=== PATIENT | female | born 1990 | race Two or more races ===

== ENCOUNTER 2025-09-20 04:34 | Inpatient (IN) | payer MEDICAID, OTHER ==
[~2025-09-20] VITALS: Ht 154.9 cm; Wt 76.5 kg
--- NOTE | 2025-09-20 05:25 | PRN ---
Misceleneous Note Note Note RAPID MEDICAL ASSESSMENT NOTE: 35-year-old female who presents with nausea, vomiting, multiple episodes of hematemesis in the past day. Patient reports waking up with nausea and vomiting daily for the past 6 months. She reports every other day alcohol use. She is denying any abdominal pain at this time. Physical exam: General: Awake, alert and oriented. No acute distress. Skin: Skin dry and intact without rashes or lesions. HEENT: The head is normocephalic and atraumatic. Conjunctivae are clear without exudates or hemorrhage. Sclera is non-icteric. Neck: Normal range of motion. No JVD. Cardiac: Regular rate Respiratory: No signs of respiratory distress. No Stridor. Neurological: The patient is awake, alert and oriented to person, place, and time with normal speech. Speech is clear. There is no facial asymmetry. Psychiatric: Flattened affect. Plan: Labs, ppi, antiemetic. Sign out to oncoming provider pending full evaluation and re-assessment. ELISHA ANDERSON MD Sep 20, 2025 05:25
[2025-09-20] MEDS: PANTOPRAZOLE 40 MG/10 ML VIAL INJ IV ONE (06:12)
[2025-09-20] MEDS: ONDANSETRON HCL 4 MG/2 ML VIAL IV ONE ×2 (06:12→10:41)
[2025-09-20 06:26] LABS: Hematocrit 39.5 % (36.0-46.0); Hemoglobin 13.2 g/dL (12.2-16.2); Mean Corpuscular Hemoglobin 31.8 pg (28.0-32.0); Mean Corpuscular Volume 95.1 fL (80.0-100.0); Nucleated Red Blood Cells % 0.0 %
[2025-09-20 06:43] LABS: Albumin 4.6 g/dL (3.2-4.8); Anion Gap 13 (5-15); BUN/Creatinine Ratio 7.1 (10.0-20.0); Bilirubin, Total 0.8 mg/dL (0.2-1.0); Calcium 9.0 mg/dL (8.7-10.4); Carbon Dioxide 24 mmol/L (20-31); Chloride 105 mmol/L (98-107); Potassium 4.1 mmol/L (3.5-5.1); Sodium 142 mmol/L (136-145)
[2025-09-20 06:46] LABS: Alanine Aminotransferase 73 U/L (7-40); Alkaline Phosphatase 143 U/L (46-116); Blood Urea Nitrogen 5 mg/dL (9-23); Glucose 162 mg/dL (74-106); Total Protein 8.3 g/dL (5.7-8.2)
--- NOTE | 2025-09-20 07:16 | ED.PDOC ---
GI ASSESSMENT HPI Comments This is a 35 year old female presenting to the ED with chief complaint of hematemesis. Patient reports that she has had chronic episodes of nausea, vomiting, and tremors for about a year now, however, recently she started to experience bright red hematemesis during her vomiting episodes. Patient relays that she also has been developing night sweats. Patient denies any diarrhea, abdominal pain, fever, chills, chest pain, or SOB. Chief Complaint: GI Bleed Time Seen by MD: 07:14 Reviewed Notes: Nurses Notes, Medications, Allergies Allergies: Coded Allergies: NO KNOWN ALLERGIES (Unverified , 09/20/25) Home Meds No Active Prescriptions or Reported Meds Information Source: Patient Mode of Arrival: Ambulatory Timing: Days Duration: Since onset Prehospital treatment: None Vomitus: Bright Red Bood Stool: Normal Severity: Moderate Recent: None Recent Hx of: None Pain Location: None Modifying Factors: Nothing Associated sign and symptoms: Hematemesis Past Medical History PAST MEDICAL HISTORY: Denies Surgical History: Denies all surgeries ETHICAL HACKER History: No Pertinent ETHICAL HACKER History Family History Family History: Reviewed,noncontributory to illness Social History Smoker: Non-Smoker Alcohol: Denies ETOH Use Drugs: Denies Drug Use Lives In: Home Constitutional: reports: sweats; denies: chills, diaphoresis, fatigue, fever, malaise, weakness, others EENTM: denies: blurred vision, double vision, ear bleeding, ear discharge, ear drainage, ear pain, ear ringing, eye pain, eye redness, hearing loss, mouth pain, mouth swelling, nasal discharge, nose bleeding, nose congestion, nose pa in, photophobia, tearing, throat pain, throat swelling, voice changes, others Respiratory: denies: cough, hemoptysis, orthopnea, SOB at rest, shortness of breath, SOB with excertion, stridor, wheezing, others Cardiovascular: denies: chest pain, dizzy spells, diaphoresis, Dyspnea on exertion, edema, irregular heart beat, left arm pain, lightheadedness, palpitations, PND, syncope, others Gastrointestinal: reports: hematemesis, nausea, vomiting; denies: abdomen distended, abdominal pain, blood streaked bowels, constipated, diarrhea, dysphagia, difficulty swallowing, melena, poor appetite, poor fluid intake, rectal bleeding, rectal pain, others Genitourinary: denies: abnormal vagina bleeding, burning, dyspareunia, dysuria, flank pain, frequency, hematuria, incontinence, pain, , vagina discharge, urgency, others Neurological: reports: tremors; denies: dizziness, fainting, headache, left sided numbness, left sided weakness, numbness, paresthesia, pre-existing deficit, right sided numbness, right sided weakness, seizure, speech problems, tingling, weakness, others Musculoskeletal: denies: back pain, gout, joint pain, joint swelling, muscle pain, muscle stiffness, neck pain, others Integumetry: denies: bruises, change in color, change in hair/nails, dryness, laceration, lesions, lumps, rash, wounds, others Allergic/Immunocompromised: denies: Difficulty Healing, Frequent Infections, Hives, Itching, others Hematologic/Lymphatic: denies: anemia, blood clots, easy bleeding, easy bruising, swollen glands, others Endocrine: denies: excessive hunger, excessive sweating, excessive thirst, excessive urination, flushing, intolerance to cold, intolerance to heat, unexplained weight gain, unexplained weight loss, others Psychiatric: denies: anxiety, bipolar disorder, depression, hopeless, panic disorder, schizophrenia, sleepless, suicidal, others All Other Systems: Reviewed and Negative Physical Exam General Appearance: No Apparent Distress, Normal HEENT: Normal ENT Inspection, Pharynx Normal, TMs Normal Neck: Full Range of Motion, Non-Tender, Normal, Normal Inspection Respiratory: Chest Non-Tender, Lungs Clear, No Accessory Muscle Use, No Respiratory Distress, Normal Breath Sounds Cardiovascular: No Edema, No JVD, No Murmur, No Gallop, Normal Peripheral Pulses, Regular Rate/Rhythm Breast Exam: Deferred Gastrointestinal: No Organomegaly, Non Tender, No Pulsatile Mass, Normal Bowel Sounds, Soft Genitalia: Deferred Pelvic: Deferred Rectal: Deferred Extremities: No calf tenderness, Normal capillary refill, Normal inspection, Normal range of motion, Non-tender, No pedal edema Musculoskeletal : Apperance: Normal Neurologic: Alert, lead technical architect II-XII nml as Tested, No Motor Deficits, Normal Affect, Normal Mood, No Sensory Deficits, Other (Tremulous) Cerebellar Function: Normal Reflexes: Normal Skin: Dry, Normal Color, Warm Lymphatic: No Adenopathy Was a procedure done? Was a procedure done?: No GI differential Dx Differential Diagnosis: Gastritis/PUD, Gastroenteritis, Hepatitis, UTI, Urolithiasis, Dehydration X-Ray, Labs, Meds, VS Vital Signs Date Time Temp Pulse Resp B/P (MAP) Pulse Ox O2 Delivery O2 Flow Rate FiO2 09/20/25 10:30 91 24 96 Room Air* 0 21 09/20/25 10:30 98.8 91 24 147/94 (111) 96 98.8 09/20/25 07:43 98.4 84 16 152/80 (104) 98 98.4 09/20/25 07:43 84 16 98 Room Air 09/20/25 04:35 99.0 98 18 159/103 97 99.0 Lab Test 09/20/25 07:10 09/20/25 06:30 09/20/25 06:00 Range/Units Urine Color Yellow Yellow Urine Clarity Hazy H Clear Urine pH 6.5 5.0-9.0 Urine Specific [place] 1.025 1.001-1.035 Urine Protein 1+ H Negative Urine Ketones Trace Negative Urine Blood Negative Negative /uL Urine Nitrite Negative Negative Urine Bilirubin Negative Negative Urine Urobilinogen 2 H Negative mg/dL Urine Leukocyte Esterase Negative Negative /uL Urine RBC 4 0 - 4 /hpf Urine Microscopic WBC 2 0-5 /HPF Urine Squamous Epithelial Cells Few <5 /hpf Urine Bacteria Few H None Seen /hpf Urine Mucus Few None Seen Urine Glucose Trace Normal mg/dL Urine Test Negative Negative Urine Opiates Screen Neg NEGATIVE Urine Fentanyl Screen Neg NEGATIVE Urine Barbiturates Screen Neg NEGATIVE Urine Phencyclidine Screen Neg NEGATIVE Urine Amphetamines Screen Neg NEGATIVE Urine Benzodiazepines Screen Neg NEGATIVE Urine Cocaine Screen Neg NEGATIVE Urine Cannabinoids Screen Pos NEGATIVE Stool Occult Blood Negative Negative Stool Occult Blood Sample #3 Negative White Blood Count 10.2 4.4-10.8 10^3/uL Red Blood Count 4.15 4.0-5.20 10^6/uL Hemoglobin 13.2 12.2-16.2 g/dL Hematocrit 39.5 36.0-46.0 % Mean Corpuscular Volume 95.1 80.0-100.0 fL Mean Corpuscular Hemoglobin 31.8 28.0-32.0 pg Mean Corpuscular Hemoglobin Concent 33.4 32.0-36.0 g/dL Red Cell Distribution Width 16.2 H 11.8-14.3 % Platelet Count 204 140-450 10^3/uL Mean Platelet Volume 7.8 6.9-10.8 fL Neutrophils (%) (Auto) 82.9 H 37.0-80.0 % Lymphocytes (%) (Auto) 10.8 10.0-50.0 % Monocytes (%) (Auto) 5.7 0.0-12.0 % Eosinophils (%) (Auto) 0.2 0.0-7.0 % Basophils (%) (Auto) 0.4 0.0-2.0 % Neutrophils # (Auto) 8.4 1.6-8.6 10 ^3/uL Lymphocytes # (Auto) 1.1 0.4-5.4 10 ^3/uL Monocytes # (Auto) 0.6 0-1.3 10 ^3/uL Eosinophils # (Auto) 0 0-0.8 10 ^3/uL Basophils # (Auto) 0 0-0.2 10 ^3/uL Nucleated Red Blood Cells 0.0 % Sodium Level 142 136-145 mmol/L Potassium Level 4.1 3.5-5.1 mmol/L Chloride Level 105 98-107 mmol/L Carbon Dioxide Level 24 20-31 mmol/L Anion Gap 13 5-15 Blood Urea Nitrogen 5 L 9-23 mg/dL Creatinine 0.70 0.550-1.02 mg/dL Glomerular Filtration Rate Calc 116 >90 mL/min BUN/Creatinine Ratio 7.1 L 10.0-20.0 Serum Glucose 162 H 74-106 mg/dL Hemoglobin A1c 5.5 <5.7 % A1C Calcium Level 9.0 8.7-10.4 mg/dL Total Bilirubin 0.8 0.2-1.0 mg/dL Aspartate Amino Transferase (AST) 163 H 13-40 U/L Alanine Aminotransferase (ALT) 73 H 7-40 U/L Alkaline Phosphatase 143 H 46-116 U/L Total Protein 8.3 H 5.7-8.2 g/dL Albumin 4.6 3.2-4.8 g/dL Thyroid Stimulating Hormone (TSH) 2.35 0.55-4.78 uIU/mL Plasma/Serum Blood Alcohol < 3.0 <10 mg/dL Time of 1ST Reevaluation: 08:13 Reevaluation 1ST: Unchanged Patient Education/Counseling: Diagnosis, Treatment Family Education/Counseling: No Family Present SEPSIS Sepsis Screen Date sepsis recognized/suspect: Sep 20, 2025 Time Sepsis recognized/suspect: 044 Recent Procedure: No On Antibiotic Therapy: No Respiratory Rate >20: No Heart Rate >90: No Temp<36 C (96.8 F) or >38.3 C: No SBP <90 or MAP <65 mmHG: No New Acute Mental Status Change: No Is the patient on CPAP, BIPAP,: No Physician Orders Chest Portable (09/20/25 07:10) Ct Ab Pel With Iv Con Only (09/20/25 09:50) Vital Signs Date Time Temp Pulse Resp B/P (MAP) Pulse Ox O2 Delivery O2 Flow Rate FiO2 09/20/25 10:30 91 24 96 Room Air* 0 21 09/20/25 10:30 98.8 91 24 147/94 (111) 96 98.8 09/20/25 07:43 98.4 84 16 152/80 (104) 98 98.4 09/20/25 07:43 84 16 98 Room Air 09/20/25 04:35 99.0 98 18 159/103 97 99.0 Laboratory Tests Test 09/20/25 06:00 White Blood Count 10.2 10^3/uL (4.4-10.8) Departure 1 Departure Time of Disposition: 18:41 (Patient presented with abdominal pain that was concerning for possible appendicits, gastritis, cholecystitis, colitis, gastroenteritis, sbo, or orther possible surgical emergency. Data: 1. I ordered and reviewed the result of at least 3 labs including a CBC, BMP, and Urinalysis. 2. I independently interpreted the following tests: CT Abdomen and Pelvis is concerning for diffuse colitis .Risk:This patient has a high risk of morbidity due to further diagnostic testing or treatment and may suffer from an acute abdominal process disorder. Workup reveals diffuse colitis and patient should be admitted for further workup. and possible expert consultation. ) Impression: Primary Impression: Colitis Additional Impressions: Intractable nausea and vomiting Intractable abdominal pain Disposition: ADMITTED INPATIENT Admit to: Med Surg Condition: Guarded e-Prescriptions No Active Prescriptions or Reported Meds Critical Care Note Critical Care Time?: Yes Critical care comment: Intractable abdominal pain Authorized and Performed by: Rody Goodwin MD Total critical care time: Approximately 39 minutes Due to a high probability of clinically significant, life threatening deterioration, the patient required my highest level of preparedness to intervene emergently and I personally spent this critical care time directly and personally managing the patient. This critical care time included obtaining a history; examining the patient; pulse oximetry; ordering and review of studies; arranging urgent treatment with development of a management plan; evaluation of patient's response to treatment; frequent reassessment; and, discussions with other providers. This critical care time was performed to assess and manage the high probability of imminent, life-threatening deterioration that could result in multi-organ failure. It was exclusive of separately billable procedures and treating other patients and teaching time. Please see my other sections and the rest of the note for further information on patient assessment and treatment. Stability Stability form required: No Heart Score Heart Score: Heart Score Response (Comments) Value History N/A 0 EKG N/A 0 Age N/A 0 Risk Factors N/A 0 Troponin N/A 0 Total 0 I personally scribed for RODY GOODWIN MD ([email or web address]) on 09/20/25 at 07:16. Electronically submitted by Jacobo Saba ([email or web address]). RODY GOODWIN MD Sep 20, 2025 07:16
[2025-09-20 07:57] LABS: Urine Protein, UAD 1+ (Negative)
--- NOTE | 2025-09-20 08:25 | DVH ---
CHEST RADIOGRAPH Indication: vomiting Technique: Single frontal view of the chest was obtained Comparison: None FINDINGS: Lines and Tubes: None Lungs: No focal consolidation. Pleura: No effusion. No pneumothorax. Cardiomediastinal contours: Unremarkable Bones: No acute osseous abnormality. IMPRESSION: 1. No acute cardiopulmonary disease.
[2025-09-20] MEDS ORDERED: MORPHINE SULFATE 4 MG/ML SYR/VIAL IV ONE (10:00)
[2025-09-20] MEDS: IOHEXOL 300 MG/ML 100ML BOTTLE IJ ONE (10:02)
[2025-09-20 10:30] VITALS: PULSE 91; RESP 24; O2SAT 96
[2025-09-20] MEDS: HYDROmorphone HCL 2 MG/ML VL/or syr IV ONE (10:42)
[2025-09-20] MEDS: SODIUM CHLORIDE 0.9% 1,000 ML IV ONE (10:43)
[2025-09-20] MEDS ORDERED: ACETAMINOPHEN 325 MG TAB PO PRN (10:45)
[2025-09-20] MEDS ORDERED: ONDANSETRON HCL 4 MG/2 ML VIAL IV PRN (10:45)
--- NOTE | 2025-09-20 11:36 | DVH ---
Exam: CT CT AB PEL WITH IV CON ONLY History: abdominal pain COMPARISON: None Technique: Multidetector spiral CT of the abdomen and pelvis was performed from lung bases to pubic s ymphysis. Intravenous contrast was administered during this examination. Portal venous imaging was o btained. Axial, coronal and sagittal multiplanar reformats were performed by the technologist on a [employer] workstation. Radiation Dose : 1. Abdomen/Pelvis: CTDIvol 17.25mGy, DLP 908.35 mGy*cm. Findings: Lung Bases: No acute or significant lung base finding. Normal heart size. No pleural or pericardial e ffusion. Liver: Hepatic steatosis. Hepatomegaly. No focal lesions. Normal hepatic vascular enhancement. Gallbladder and Biliary Tree: Mild pericholecystic edema. Spleen: Enlarged measuring 14.7 cm. Pancreas: The pancreas is normal in appearance without focal lesions or abnormal enhancement. Adrenal Glands: Unremarkable Kidneys: No hydronephrosis. Bladder: Unremarkable Bowel: The stomach is grossly normal in appearance. Moderate diffuse colonic bowel wall thickening. T he small bowel is normal in caliber and distribution. The appendix is not visualized; however, no sec ondary findings of acute appendicitis identified. Ascites: Absent Lymphadenopathy: No mesenteric, retroperitoneal or periportal lymphadenopathy. Abdominal Wall and Mesentery: Unremarkable. Vasculature: The visualized abdominal aorta is normal in size and caliber. Abdominal and pelvic vesse ls demonstrate normal enhancement. Pelvic Organs: Unremarkable Musculoskeletal: Degenerative changes of the spine. Disc bulge at L5-S1. No aggressive focal bony les ions, acute fractures or dislocation. IMPRESSION: Moderate diffuse colonic bowel wall thickening. Correlate for infectious or inflammatory colitis. Hepatic steatosis and hepatosplenomegaly. Mild pericholecystic edema. Radiation optimization: All CT scans at this facility use at least one of these dose optimization almita hniques: automated exposure control mA and/or kV adjustment per patient size (includes targeted exam s where dose is matched to clinical indication) or iterative reconstruction.
--- NOTE | 2025-09-20 12:21 | DVH ---
CT HEAD WITHOUT CONTRAST INDICATION: numbness and tingling EXAM DATE: 09/20/2025 11:44 AM COMPARISON: None RADIATION DOSE: CTDIvol: 60.6 mGy, DLP: 1194.14 mGy*cm PROCEDURE: CT scans of the head were obtained from the vertex to the skull base. Sagittal and coronal reconstructions were provided. All CT scans at this medical facility are performed using dose modulation techniques as appropriate t o a performed exam including the following: Automated exposure control was utilized; adjustment of th e MA and/or KV according to patient size; and use of iterative reconstruction technique. FINDINGS: There is sulcal and ventricular prominence. The brainshows normal morphology and isabel-whi te matter differentiation, without intracranial hemorrhage, extra-axial fluid collection, mass effect or acute large vessel infarct. The ventricles are normal in size. The basal cisterns are patent. The skull and visible facial bones are intact. The paranasal sinuses, mastoid air cells and middle ear c avities are well-aerated. The soft tissues of the scalp are unremarkable. IMPRESSION: No acute intracranial abnormality.
[2025-09-20 12:25] LABS: Opiate Scree,Urine Neg (NEGATIVE)
[2025-09-20 12:31] LABS: Amphetamine Screen, Urine Neg (NEGATIVE); Barbiturate Scree,Urine Neg (NEGATIVE); Benzodiazephine Screen, Urine Neg (NEGATIVE); Cannabinoid Screen, Urine Pos (NEGATIVE); Cocaine Screen, Urine Neg (NEGATIVE); Phencyclidine Screen, Urine Neg (NEGATIVE)
--- NOTE | 2025-09-20 12:45 | DVH ---
INDICATION: elevated LFTs TECHNIQUE: Multiple real-time sonographic images were obtained of the right upper quadrant. COMPARISON: None FINDINGS: The liver demonstrates increased echotexture without focal mass lesions. The liver measures 20 cm. There is no intrahepatic or extrahepatic ductal dilatation. The common duct measures 3 mm. Nonspecific gallbladder wall thickening 5 mm. The gallbladder wall measures 3 mm and is within jerry l limits. The right kidney measures 10 cm. The right kidney is normal in contour, size, and shape. The echogen icity is normal. There is no hydronephrosis. The pancreas is not well visualized due to overlying bowel gas. IMPRESSION: Nonspecific gallbladder wall thickening 5 mm. No sonographic evidence of gallstones. Hepatic steatosis and hepatomegaly.
[2025-09-20] MEDS: MULTIPLE VITAMIN TAB PO ONE (12:53)
[2025-09-20] MEDS: THIAMINE HCL 100 MG TAB PO ONE (12:53)
[2025-09-20] MEDS: FOLIC ACID 1 MG TAB PO ONE (12:54)
[2025-09-20] MEDS: LORazepam 2MG/ML-1ML VIAL IV SCH (12:54)
--- NOTE | 2025-09-20 12:58 | DVH ---
INDICATION: back pain TECHNIQUE: Frontal and lateral views of the lumbar spine were obtained. COMPARISON: None FINDINGS: . There are no fractures or subluxations. Vertebral body heights and disc spaces are well m aintained. Paravertebral soft tissues are unremarkable. IMPRESSION: 1. Of the visualized spine, there is no evidence for fracture or subluxation.
[2025-09-20 13:04] LABS: COVID19 ANTIGEN SOFIA FIA NEGATIVE (NEGATIVE)
[2025-09-20] MEDS: SODIUM CHLORIDE 0.9% 1,000 ML IV SCH (13:08)
[2025-09-20 13:44] LABS: Magnesium 1.3 mg/dL (1.6-2.6)
[2025-09-20 14:13] VITALS: BP 143/95; PULSE 87; RESP 17; TEMP 98.7; O2SAT 96
[2025-09-20 14:14] VITALS: PULSE 86; O2SAT 97
[2025-09-20 14:15] LABS: Bilirubin, Total 0.8 mg/dL (0.2-1.0)
[2025-09-20 15:05] LABS: Lipase 43.0 U/L (12-53)
[2025-09-20 17:00] VITALS: BP 117/74; PULSE 78; RESP 17; TEMP 99.4; O2SAT 98
[2025-09-20 20:00] VITALS: PULSE 88
[2025-09-20 21:00] VITALS: BP 128/90; PULSE 89; RESP 14; TEMP 99.4; O2SAT 95
[2025-09-21 01:00] VITALS: BP 121/86; PULSE 70; RESP 14; TEMP 98.1; O2SAT 97
[2025-09-21 05:00] VITALS: BP 159/94; PULSE 101; RESP 16; TEMP 98.4; O2SAT 95
[2025-09-21 07:04] LABS: Hematocrit 35.8 % (36.0-46.0); Hemoglobin 12.5 g/dL (12.2-16.2); Mean Corpuscular Hemoglobin 32.8 pg (28.0-32.0); Mean Corpuscular Volume 93.7 fL (80.0-100.0); Nucleated Red Blood Cells % 0.2 %
[2025-09-21 07:20] LABS: Albumin 4.0 g/dL (3.2-4.8); Anion Gap 9 (5-15); BUN/Creatinine Ratio 13.6 (10.0-20.0); Blood Urea Nitrogen 9 mg/dL (9-23); Calcium 8.8 mg/dL (8.7-10.4); Carbon Dioxide 25 mmol/L (20-31); Chloride 106 mmol/L (98-107); Glucose 100 mg/dL (74-106); Potassium 3.6 mmol/L (3.5-5.1); Sodium 140 mmol/L (136-145); Total Protein 7.1 g/dL (5.7-8.2)
[2025-09-21 07:39] LABS: Alanine Aminotransferase 50 U/L (7-40); Alkaline Phosphatase 128 U/L (46-116); Bilirubin, Total 1.7 mg/dL (0.2-1.0)
[2025-09-21] MEDS ORDERED: MULTIPLE VITAMIN TAB PO SCH (10:00)
[2025-09-21] MEDS ORDERED: FOLIC ACID 1 MG TAB PO SCH (10:00)
[2025-09-21] MEDS ORDERED: PANTOPRAZOLE 40 MG/10 ML VIAL INJ IV SCH (10:00)
[2025-09-21] MEDS ORDERED: THIAMINE HCL 100 MG TAB PO SCH (10:00)
--- NOTE | 2025-09-21 11:07 | DVHHP2 ---
History of Present Illness Reason for Visit: Hematemesis History of Present Illness Alma Nieto is a 35-year-old female with past medical history of chronic back pain, anxiety and ectopic status post salpingectomy who presents to ED with hematemesis x1 that occurred yesterday after she had greater than 10 episodes of emesis. Patient reported that the 1 episode of hematemesis with streak like with no clots involved. Patient reports that she was a [facility] patient but when she tried to call they advised her that she no longer has insurance which prompted her to come to this ED. Patient also reports that she has low back pain complaining 7/10 aching and constant. Patient also reports that she has been having nausea and vomiting as well as night sweats since she was a young child. Patient reports that she does not currently have a PCP. Patient also reports that she has been stressed recently and has been drinking a cocktail every day after work. Patient reports that she has not been able to eat the last 2 days, however she ate tacos from [employer]. Patient also reports night sweats. Patient reports that she has been having nausea, vomiting, and tremors for the last year. Patient reports that she has been having chronic back pain since 2013 after she received an epidural for labor pains. Patient denies any recent trauma or injury, recent sick contacts, recent travels, chest pain, shortness of breath, fever, chills, diarrhea, or urinary symptoms. Psych: Anxiety Past Medical History Ectopic Chronic back pain Past Surgical History: Other (Salpingectomy) Family History: None Smoke: No ALCOHOL: heavy Drugs: None Lives: with Family Domestic Violence: Neg Review of Systems Constitutional: Yes: Sweats Gastrointestinal: Nausea, Vomiting, Other (Hematemesis) Allergies: Coded Allergies: NO KNOWN ALLERGIES (Unverified , 09/20/25) Exam Vital Signs Vital Signs Date Time Temp Pulse Resp B/P (MAP) Pulse Ox O2 Delivery O2 Flow Rate FiO2 09/20/25 07:43 98.4 84 16 152/80 (104) 98 98.4 09/20/25 07:43 Room Air General Appearance: Alert, Oriented X3, Cooperative HEENT: Atraumatic, PERRLA, EOMI, Mucous membr. moist/pink Respiratory: Normal air movement Cardiovascular: Regular rate, Normal S1, Normal S2, No murmurs Abdominal: Normal bowel sounds, Soft Extremities: No edema, Normal pulses Skin: No significant lesion Neuro: Normal speech, Strength at 5/5 X4 ext, Normal tone, Sensation intact Psych/Mental Status: Mental status NL, Mood NL Labs/Xrays Labs Test 09/20/25 07:10 09/20/25 06:00 Range/Units Urine Color Yellow Yellow Urine Clarity Hazy H Clear Urine pH 6.5 5.0-9.0 Urine Specific [place] 1.025 1.001-1.035 Urine Protein 1+ H Negative Urine Ketones Trace Negative Urine Blood Negative Negative /uL Urine Nitrite Negative Negative Urine Bilirubin Negative Negative Urine Urobilinogen 2 H Negative mg/dL Urine Leukocyte Esterase Negative Negative /uL Urine RBC 4 0 - 4 /hpf Urine Microscopic WBC 2 0-5 /HPF Urine Squamous Epithelial Cells Few <5 /hpf Urine Bacteria Few H None Seen /hpf Urine Mucus Few None Seen Urine Glucose Trace Normal mg/dL Urine Test Negative Negative White Blood Count 10.2 4.4-10.8 10^3/uL Red Blood Count 4.15 4.0-5.20 10^6/uL Hemoglobin 13.2 12.2-16.2 g/dL Hematocrit 39.5 36.0-46.0 % Mean Corpuscular Volume 95.1 80.0-100.0 fL Mean Corpuscular Hemoglobin 31.8 28.0-32.0 pg Mean Corpuscular Hemoglobin Concent 33.4 32.0-36.0 g/dL Red Cell Distribution Width 16.2 H 11.8-14.3 % Platelet Count 204 140-450 10^3/uL Mean Platelet Volume 7.8 6.9-10.8 fL Neutrophils (%) (Auto) 82.9 H 37.0-80.0 % Lymphocytes (%) (Auto) 10.8 10.0-50.0 % Monocytes (%) (Auto) 5.7 0.0-12.0 % Eosinophils (%) (Auto) 0.2 0.0-7.0 % Basophils (%) (Auto) 0.4 0.0-2.0 % Neutrophils # (Auto) 8.4 1.6-8.6 10 ^3/uL Lymphocytes # (Auto) 1.1 0.4-5.4 10 ^3/uL Monocytes # (Auto) 0.6 0-1.3 10 ^3/uL Eosinophils # (Auto) 0 0-0.8 10 ^3/uL Basophils # (Auto) 0 0-0.2 10 ^3/uL Nucleated Red Blood Cells 0.0 % Sodium Level 142 136-145 mmol/L Potassium Level 4.1 3.5-5.1 mmol/L Chloride Level 105 98-107 mmol/L Carbon Dioxide Level 24 20-31 mmol/L Anion Gap 13 5-15 Blood Urea Nitrogen 5 L 9-23 mg/dL Creatinine 0.70 0.550-1.02 mg/dL Glomerular Filtration Rate Calc 116 >90 mL/min BUN/Creatinine Ratio 7.1 L 10.0-20.0 Serum Glucose 162 H 74-106 mg/dL Calcium Level 9.0 8.7-10.4 mg/dL Total Bilirubin 0.8 0.2-1.0 mg/dL Aspartate Amino Transferase (AST) 163 H 13-40 U/L Alanine Aminotransferase (ALT) 73 H 7-40 U/L Alkaline Phosphatase 143 H 46-116 U/L Total Protein 8.3 H 5.7-8.2 g/dL Albumin 4.6 3.2-4.8 g/dL Plasma/Serum Blood Alcohol < 3.0 <10 mg/dL CHEST RADIOGRAPH Indication: vomiting Technique: Single frontal view of the chest was obtained Comparison: None FINDINGS: Lines and Tubes: None Lungs: No focal consolidation. Pleura: No effusion. No pneumothorax. Cardiomediastinal contours: Unremarkable Bones: No acute osseous abnormality. IMPRESSION: 1. No acute cardiopulmonary disease. Exam: CT CT AB PEL WITH IV CON ONLY History: abdominal pain COMPARISON: None Technique: Multidetector spiral CT of the abdomen and pelvis was performed from lung bases to pubic symphysis. Intravenous contrast was administered during this examination. Portal venous imaging was obtained. Axial, coronal and sagittal multiplanar reformats were performed by the technologist on a separate workstation. Radiation Dose : 1. Abdomen/Pelvis: CTDIvol 17.25mGy, DLP 908.35 mGy*cm. Findings: Lung Bases: No acute or significant lung base finding. Normal heart size. No pleural or pericardial effusion. Liver: Hepatic steatosis. Hepatomegaly. No focal lesions. Normal hepatic vascular enhancement. Gallbladder and Biliary Tree: Mild pericholecystic edema. Spleen: Enlarged measuring 14.7 cm. Pancreas: The pancreas is normal in appearance without focal lesions or abnormal enhancement. Adrenal Glands: Unremarkable Kidneys: No hydronephrosis. Bladder: Unremarkable Bowel: The stomach is grossly normal in appearance. Moderate diffuse colonic bowel wall thickening. The small bowel is normal in caliber and distribution. The appendix is not visualized; however, no secondary findings of acute appendicitis identified. Ascites: Absent Lymphadenopathy: No mesenteric, retroperitoneal or periportal lymphadenopathy. Abdominal Wall and Mesentery: Unremarkable. Vasculature: The visualized abdominal aorta is normal in size and caliber. Abdominal and pelvic vessels demonstrate normal enhancement. Pelvic Organs: Unremarkable Musculoskeletal: Degenerative changes of the spine. Disc bulge at L5-S1. No aggressive focal bony lesions, acute fractures or dislocation. IMPRESSION: Moderate diffuse colonic bowel wall thickening. Correlate for infectious or inflammatory colitis. Hepatic steatosis and hepatosplenomegaly. Mild pericholecystic edema. SEPSIS Sepsis Screen Date sepsis recognized/suspect: Sep 20, 2025 Time Sepsis recognized/suspect: 440 Recent Procedure: No On Antibiotic Therapy: No Respiratory Rate >20: No Heart Rate >90: No Temp<36 C (96.8 F) or >38.3 C: No SBP <90 or MAP <65 mmHG: No New Acute Mental Status Change: No Is the patient on CPAP, BIPAP,: No Physician Orders Urinalysis (09/20/25 05:16) Stool Occult Blood (09/20/25 05:16) Chest Portable (09/20/25 07:10) Sodium Chloride 0.9% (09/20/25 10:00) Ct Ab Pel With Iv Con Only (09/20/25 09:50) Vital Signs Date Time Temp Pulse Resp B/P (MAP) Pulse Ox O2 Delivery O2 Flow Rate FiO2 09/20/25 07:43 98.4 84 16 152/80 (104) 98 98.4 09/20/25 07:43 84 16 98 Room Air 09/20/25 04:35 99.0 98 18 159/103 97 99.0 Laboratory Tests Test 09/20/25 06:00 White Blood Count 10.2 10^3/uL (4.4-10.8) Medications Medications Dose Ordered Sig/[place] Route Start Time Stop Time Status Last Admin Dose Admin Ondansetron HCl 4 mg ONCE ONCE IV 09/20/25 05:30 09/20/25 05:31 DC 09/20/25 06:12 4 MG Pantoprazole Sodium 40 mg ONCE ONCE IV 09/20/25 05:30 09/20/25 05:31 DC 09/20/25 06:12 40 MG Assessment/Plan Assessment/Plan Assessment Intractable abdominal pain likely due to colitis Hepatic steatosis and hepatosplenomegaly Mild pericholecystic edema Hematemesis rule out GI bleed Transaminitis likely from alcohol use Hyperglycemia ? ETOH withdrawal versus anxiety Alcohol use Intractable low back pain Numbness and tingling in bilateral upper extremities, bilateral lower extremities, and head per patient reports History of anxiety History of ectopic status post salpingectomy Plan Admit to telemetry Antiemetics Pain management CT abdomen and pelvis UA NS 1 L given ED Blood alcohol noted Chest x-ray noted UA for Stool OB Lactic Flu test COVID test TSH Hemoglobin A1c CIWA Multivitamins Thiamine Folic acid Anxiolytics X-ray lumbar spine Abdominal ultrasound CT head Lipase T bili NPO IV fluids Per patient no home medications taken DVT prophylaxis-SCDs PUD prophylaxis-PPIs Discussed plan of care with patient and nurse Counseled patient on cessation of alcohol use [id number] Preventive counseling healthy eating habits, physical activity, and regular checkups CIWA 13 points Plan discussed with: Patient Date of Service: Sep 20, 2025 Billing Provider: KJ ZAFAR Common Visit Codes: [id number] INP/OBS CARE (HIGH) Secondary Visit Codes: [id number] COUNSELING IND KJ ZAFAR Sep 20, 2025 10:41
--- NOTE | 2025-09-21 14:25 | DVHDS2 ---
Discharge Summary Date of Admission Sep 20, 2025 at 10:35 Date of Discharge: Sep 21, 2025 Labs/Diagnostic Data: Laboratory Results Test 09/21/25 05:58 09/20/25 12:43 09/20/25 10:55 09/20/25 07:10 White Blood Count 5.1 10^3/uL (4.4-10.8) Red Blood Count 3.82 10^6/uL (4.0-5.20) Hemoglobin 12.5 g/dL (12.2-16.2) Hematocrit 35.8 % (36.0-46.0) Mean Corpuscular Volume 93.7 fL (80.0-100.0) Mean Corpuscular Hemoglobin 32.8 pg (28.0-32.0) Mean Corpuscular Hemoglobin Concent 35.0 g/dL (32.0-36.0) Red Cell Distribution Width 16.2 % (11.8-14.3) Platelet Count 131 10^3/uL (140-450) Mean Platelet Volume 8.4 fL (6.9-10.8) Neutrophils (%) (Auto) 72.9 % (37.0-80.0) Lymphocytes (%) (Auto) 18.9 % (10.0-50.0) Monocytes (%) (Auto) 6.5 % (0.0-12.0) Eosinophils (%) (Auto) 1.4 % (0.0-7.0) Basophils (%) (Auto) 0.3 % (0.0-2.0) Neutrophils # (Auto) 3.7 10 ^3/uL (1.6-8.6) Lymphocytes # (Auto) 1.0 10 ^3/uL (0.4-5.4) Monocytes # (Auto) 0.3 10 ^3/uL (0-1.3) Eosinophils # (Auto) 0.1 10 ^3/uL (0-0.8) Basophils # (Auto) 0 10 ^3/uL (0-0.2) Nucleated Red Blood Cells 0.2 % Sodium Level 140 mmol/L (136-145) Potassium Level 3.6 mmol/L (3.5-5.1) Chloride Level 106 mmol/L (98-107) Carbon Dioxide Level 25 mmol/L (20-31) Anion Gap 9 (5-15) Blood Urea Nitrogen 9 mg/dL (9-23) Creatinine 0.66 mg/dL (0.550-1.02) Glomerular Filtration Rate Calc 118 mL/min (>90) BUN/Creatinine Ratio 13.6 (10.0-20.0) Serum Glucose 100 mg/dL (74-106) Calcium Level 8.8 mg/dL (8.7-10.4) Total Bilirubin 1.7 mg/dL (0.2-1.0) Aspartate Amino Transferase (AST) 95 U/L (13-40) Alanine Aminotransferase (ALT) 50 U/L (7-40) Alkaline Phosphatase 128 U/L (46-116) Total Protein 7.1 g/dL (5.7-8.2) Albumin 4.0 g/dL (3.2-4.8) Lactic Acid Level 1.3 mmol/L (0.4-2.0) Magnesium Level 1.3 mg/dL (1.6-2.6) Lipase 43 U/L (12-53) Plasma/Serum Blood Alcohol < 3.0 mg/dL (<10) Influenza Type A Antigen Negative (Negative) Influenza Type B Antigen Negative (Negative) SARS-CoV-2 Antigen (Rapid) Negative (NEGATIVE) Urine Color Yellow (Yellow) Urine Clarity Hazy (Clear) Urine pH 6.5 (5.0-9.0) Urine Specific [place] 1.025 (1.001-1.035) Urine Protein 1+ (Negative) Urine Ketones Trace (Negative) Urine Blood Negative /uL (Negative) Urine Nitrite Negative (Negative) Urine Bilirubin Negative (Negative) Urine Urobilinogen 2 mg/dL (Negative) Urine Leukocyte Esterase Negative /uL (Negative) Urine RBC 4 /hpf (0 - 4) Urine Microscopic WBC 2 /HPF (0-5) Urine Squamous Epithelial Cells Few /hpf (<5) Urine Bacteria Few /hpf (None Seen) Urine Mucus Few (None Seen) Urine Glucose Trace mg/dL (Normal) Urine Test Negative (Negative) Urine Opiates Screen Neg (NEGATIVE) Urine Fentanyl Screen Neg (NEGATIVE) Urine Barbiturates Screen Neg (NEGATIVE) Urine Phencyclidine Screen Neg (NEGATIVE) Urine Amphetamines Screen Neg (NEGATIVE) Urine Benzodiazepines Screen Neg (NEGATIVE) Urine Cocaine Screen Neg (NEGATIVE) Urine Cannabinoids Screen Pos (NEGATIVE) Test 09/20/25 06:30 09/20/25 06:00 Stool Occult Blood Negative (Negative) Stool Occult Blood Sample #3 (Negative) Hemoglobin A1c 5.5 % A1C (<5.7) Thyroid Stimulating Hormone (TSH) 2.35 uIU/mL (0.55-4.78) Other Laboratory Tests 09/21/25 05:58 Brief Hx & Hospital Course: 35-year-old female with past medical history of chronic back pain, anxiety and ectopic status post salpingectomy who presents to ED with hematemesis x1 that occurred yesterday after she had greater than 10 episodes of emesis. Patient reported that the 1 episode of hematemesis with streak like with no clots involved. Patient reports that she was a [facility] patient but when she tried to call they advised her that she no longer has insurance which prompted her to come to this ED. Patient also reports that she has low back pain complaining 7/10 aching and constant. Patient also reports that she has been having nausea and vomiting as well as night sweats since she was a young child. Patient reports that she does not currently have a PCP. Patient also reports that she has been stressed recently and has been drinking a cocktail every day after work. Patient reports that she has not been able to eat the last 2 days, however she ate tacos from [employer]. Patient also reports night sweats. Patient reports that she has been having nausea, vomiting, and tremors for the last year. Diagnosis: Intractable abdominal pain likely due to colitis Hematemesis, rule out upper GI bleed Hepatic steatosis and hepatosplenomegaly Mild pericholecystic edema Transaminitis likely from alcohol use Hyperglycemia ? ETOH withdrawal versus anxiety Alcohol use Intractable low back pain Numbness and tingling in bilateral upper extremities, bilateral lower extremities, and head per patient reports History of anxiety History of ectopic status post salpingectomy Patient left AMA, thus assuming all responsibility and any complications that may arise from having not getting recommended and needed adequate medical care/attention. Complications can include including and/or coma, and any other serious fatal comorbidities. Condition at Discharge: Undetermined Final Diagnosis/Problems List Intractable abdominal pain likely due to colitis Hematemesis, rule out upper GI bleed Hepatic steatosis and hepatosplenomegaly Mild pericholecystic edema Transaminitis likely from alcohol use Hyperglycemia ? ETOH withdrawal versus anxiety Alcohol use Intractable low back pain Numbness and tingling in bilateral upper extremities, bilateral lower extremities, and head per patient reports History of anxiety History of ectopic status post salpingectomy Discharge Disposition: AMA Discharge Instruct/Medications No Active Prescriptions or Reported Meds Discharge Statement: "Patient was advised to return to the ER or call 911 if any headaches, dizziness, shortness of breath, chest pain, abdominal pain, bleeding, fevers, or worsening of medical condition. Patient was counseled about treatment plan, medications, possible side effects, patientverbalized understanding. All questions were answered to the best of my ability. This discharge took greater then 30 minutes in planning, reviewing documentation, counseling the patient, and discussing with other team members." ASSESSMENT ASSESSMENT Assessment Date of Service: Sep 21, 2025 Billing Provider: ELIVA BLANCHARD MD Common Visit Codes: NOT BILLABLE ELVIA BLANCHARD MD Sep 21, 2025 14:25
== END 2025-09-21 08:55 | disposition left against medical advice (07) | DRG 249 ==
LOC: ER 04:34 → OVERFLOW 10:35 → EAST 14:04
PROVIDERS: ADMIT Student in an Organized Health Care Education/Training Program; ATTEND Internal Medicine
DX: K52.9 Noninfective gastroenteritis and colitis, unspecified (principal); R16.2 Hepatomegaly with splenomegaly, not elsewhere classified; F10.939 Alcohol use, unspecified with withdrawal, unspecified; F41.9 Anxiety disorder, unspecified; G89.29 Other chronic pain; Z53.29 Procedure and treatment not carried out because of patient's decision for other reasons; K76.0 Fatty (change of) liver, not elsewhere classified; R73.9 Hyperglycemia, unspecified; Z87.59 Personal history of other complications of pregnancy, childbirth and the puerperium; Z79.899 Other long term (current) drug therapy; Y90.0 Blood alcohol level of less than 20 mg/100 ml
CPT/HCPCS: 36415; 70450; 71045; 72100; 74177; 76705; 80053; 80307; 80320; 81001; 81025; 82247; 82270; 83036; 83605; 83690; 83735; 84443; 85025; 87426; 87804; G0378; J2405; J2470

== ENCOUNTER 2025-09-29 06:46 | Emergency (ER) | payer MEDICAID ==
[~2025-09-29] VITALS: Ht 154.9 cm; Wt 75.4 kg
--- NOTE | 2025-09-29 07:30 | ED.PDOC ---
GI ASSESSMENT HPI Comments 35 y.o female presents to the ED for a chief complaint of ongoing lower back radiating to mid region associated with abdominal distention. Patient was seen on 09/20/25 for similar pain and hematemesis then, was admitted with colitis diagnosed and stayed for a day and a half for extensive workup. During her stay, she has multiple imaging scans that included US, CT ABD and X rays. However, after waiting did end up leaving against medical advice but returns due to ongoing symptoms. She mentions no longer having hematemesis. She states she no longer has night sweats.. She states she feels that there is hardness and bloating to her abdomen and reports lower back pain. Denies any fever or chills. No nausea no vomiting no diarrhea. Chief Complaint: Abdominal Pain Time Seen by MD: 07:23 Reviewed Notes: Nurses Notes, Medications, Allergies Allergies: Coded Allergies: NO KNOWN ALLERGIES (Unverified , 09/20/25) Home Meds No Active Prescriptions or Reported Meds Information Source: Patient Mode of Arrival: Ambulatory Timing: Days Duration: Since onset Quality: Sharp Associated sign and symptoms: Abdominal Pain Past Medical History PAST MEDICAL HISTORY: Denies Surgical History: Denies all surgeries BUSINESS ASSOCIATE History: No Pertinent BUSINESS ASSOCIATE History Family History Family History: Reviewed,noncontributory to illness Social History Smoker: Non-Smoker Alcohol: Denies ETOH Use Drugs: Denies Drug Use Lives In: Home Constitutional: denies: chills, diaphoresis, fatigue, fever, malaise, sweats, weakness, others EENTM: denies: blurred vision, double vision, ear bleeding, ear discharge, ear drainage, ear pain, ear ringing, eye pain, eye redness, hearing loss, mouth pain, mouth swelling, nasal discharge, nose bleeding, nose congestion, nose p ain, photophobia, tearing, throat pain, throat swelling, voice changes, others Respiratory: denies: cough, hemoptysis, orthopnea, SOB at rest, shortness of breath, SOB with excertion, stridor, wheezing, others Cardiovascular: denies: chest pain, dizzy spells, diaphoresis, Dyspnea on exertion, edema, irregular heart beat, left arm pain, lightheadedness, palpitations, PND, syncope, others Gastrointestinal: reports: abdominal pain; denies: abdomen distended, blood streaked bowels, constipated, diarrhea, dysphagia, difficulty swallowing, hematemesis, melena, nausea, poor appetite, poor fluid intake, rectal bleeding, rectal pain, vomiting, others Genitourinary: denies: abnormal vagina bleeding, burning, dyspareunia, dysuria, flank pain, frequency, hematuria, incontinence, pain, , vagina discharge, urgency, others Neurological: denies: dizziness, fainting, headache, left sided numbness, left sided weakness, numbness, paresthesia, pre-existing deficit, right sided numbness, right sided weakness, seizure, speech problems, tingling, tremors, weakness, others Musculoskeletal: denies: back pain, gout, joint pain, joint swelling, muscle pain, muscle stiffness, neck pain, others Integumetry: denies: bruises, change in color, change in hair/nails, dryness, laceration, lesions, lumps, rash, wounds, others Allergic/Immunocompromised: denies: Difficulty Healing, Frequent Infections, Hives, Itching, others Hematologic/Lymphatic: denies: anemia, blood clots, easy bleeding, easy bruising, swollen glands, others Endocrine: denies: excessive hunger, excessive sweating, excessive thirst, excessive urination, flushing, intolerance to cold, intolerance to heat, unexpl ained weight gain, unexplained weight loss, others Psychiatric: denies: anxiety, bipolar disorder, depression, hopeless, panic disorder, schizophrenia, sleepless, suicidal, others All Other Systems: Reviewed and Negative Physical Exam General Appearance: No Apparent Distress, Normal HEENT: Normal ENT Inspection, Pharynx Normal, TMs Normal Neck: Full Range of Motion, Non-Tender, Normal, Normal Inspection Respiratory: Chest Non-Tender, Lungs Clear, No Accessory Muscle Use, No Respiratory Distress, Normal Breath Sounds Cardiovascular: No Edema, No JVD, No Murmur, No Gallop, Normal Peripheral Pulses, Regular Rate/Rhythm Breast Exam: Deferred Gastrointestinal: Distended, No Organomegaly, Non Tender, No Pulsatile Mass, Normal Bowel Sounds, Soft, Other (Mild abdominal distention, no CVA tenderness) Genitalia: Deferred Pelvic: Deferred Rectal: Deferred Extremities: No calf tenderness, Normal capillary refill, Normal inspection, Normal range of motion, Non-tender, No pedal edema Musculoskeletal : Apperance: Normal Neurologic: Alert, agronomy specialist II-XII nml as Tested, No Motor Deficits, Normal Affect, Normal Mood, No Sensory Deficits Cerebellar Function: Normal Reflexes: Normal Skin: Dry, Normal Color, Warm Lymphatic: No Adenopathy EKG EKG : Comments Rate of 82 sinus rhythm no significant ST changes Was a procedure done? Was a procedure done?: No GI differential Dx Differential Diagnosis: Bowel Obstruction, Esophagitis, Gastroenteritis, Pancreatitis, , Bacterial, Viral, Renal Failure Other Differential Diagnosis colitis X-Ray, Labs, Meds, VS Vital Signs Date Time Temp Pulse Resp B/P (MAP) Pulse Ox O2 Delivery O2 Flow Rate FiO2 09/29/25 08:06 86 18 97 Room Air 09/29/25 08:06 98.4 86 18 148/83 (104) 97 98.4 09/29/25 06:55 82 09/29/25 06:47 97.0 89 18 155/111 97 97.0 Lab Test 09/29/25 07:52 09/29/25 07:37 Range/Units White Blood Count 6.7 4.4-10.8 10^3/uL Red Blood Count 4.17 4.0-5.20 10^6/uL Hemoglobin 13.0 12.2-16.2 g/dL Hematocrit 38.8 36.0-46.0 % Mean Corpuscular Volume 93.2 80.0-100.0 fL Mean Corpuscular Hemoglobin 31.3 28.0-32.0 pg Mean Corpuscular Hemoglobin Concent 33.6 32.0-36.0 g/dL Red Cell Distribution Width 15.6 H 11.8-14.3 % Platelet Count 143 140-450 10^3/uL Mean Platelet Volume 8.7 6.9-10.8 fL Neutrophils (%) (Auto) 77.9 37.0-80.0 % Lymphocytes (%) (Auto) 15.8 10.0-50.0 % Monocytes (%) (Auto) 4.9 0.0-12.0 % Eosinophils (%) (Auto) 1.1 0.0-7.0 % Basophils (%) (Auto) 0.3 0.0-2.0 % Neutrophils # (Auto) 5.3 1.6-8.6 10 ^3/uL Lymphocytes # (Auto) 1.1 0.4-5.4 10 ^3/uL Monocytes # (Auto) 0.3 0-1.3 10 ^3/uL Eosinophils # (Auto) 0.1 0-0.8 10 ^3/uL Basophils # (Auto) 0 0-0.2 10 ^3/uL Nucleated Red Blood Cells 0.0 % Sodium Level 142 136-145 mmol/L Potassium Level 4.3 3.5-5.1 mmol/L Chloride Level 106 98-107 mmol/L Carbon Dioxide Level 24 20-31 mmol/L Anion Gap 12 5-15 Blood Urea Nitrogen 7 L 9-23 mg/dL Creatinine 0.66 0.550-1.02 mg/dL Glomerular Filtration Rate Calc 118 >90 mL/min BUN/Creatinine Ratio 10.6 10.0-20.0 Serum Glucose 116 H 74-106 mg/dL Calcium Level 8.9 8.7-10.4 mg/dL Total Bilirubin 0.9 0.2-1.0 mg/dL Aspartate Amino Transferase (AST) 164 H 13-40 U/L Alanine Aminotransferase (ALT) 65 H 7-40 U/L Alkaline Phosphatase 141 H 46-116 U/L Total Protein 8.2 5.7-8.2 g/dL Albumin 4.5 3.2-4.8 g/dL Lipase 69 H 12-53 U/L Urine Color Yellow Yellow Urine Clarity Turbid H Clear Urine pH 8.0 5.0-9.0 Urine Specific Sunburst 1.019 1.001-1.035 Urine Protein Negative Negative Urine Ketones Negative Negative Urine Blood Negative Negative /uL Urine Nitrite Negative Negative Urine Bilirubin Negative Negative Urine Urobilinogen 2 H Negative mg/dL Urine Leukocyte Esterase Negative Negative /uL Urine RBC 18 0 - 4 /hpf Urine Microscopic WBC 2 0-5 /HPF Urine Squamous Epithelial Cells Few <5 /hpf Urine Bacteria None seen None Seen /hpf Urine Glucose Normal Normal mg/dL Urine Test Negative Negative Current Medications Medications (Trade) Dose Ordered Sig/Chetan Route Start Time Stop Time Status Last Admin Dimethicone (Mylicon Tab) 120 mg ONCE ONCE PO 09/29/25 07:45 09/29/25 07:46 DC 09/29/25 07:58 35-year-old female presents here with low back pain and abdominal pain. She states she was here proximally a week ago and was admitted but had to leave as she had to take care of her kids. She states that overall things have improved since the admission. She is no longer vomiting no longer having night sweats. On my examination she is slightly distended but nontender. I suspect likely bloating. I have reviewed all her records from her last visit from September 20 and . It seems that she was here for hematemesis had elevated bilirubin of 1.7. She was admitted to the hospital. CT abdomen pelvis from the last visit demonstrated colitis infectious versus inflammatory. At this time she denies any dysuria, denies any fever or chills. I advised her I suspect the abdominal pain is likely gas and bloating. I have ordered repeat CBC, CMP, lipase, urine for evaluation. CBC within normal limits. CMP demonstrates improved bilirubin function it is now 0.9. Previously was 1.7 week ago. LFTs continued to be up but still within range of last week. Lipase is slightly high at 69 versus 43 last week. At this time however overall she is doing better. The simethicone has helped. I have discharged her home with simethicone p.o.. At this time advised her to follow up with her PCP in 2-3 days and return to the ER if symptoms worsen or persist. Advised her if after 1 week she continues to have these symptoms she needs to follow up with her primary care physician and will likely need a gastroenterology follow up and referral as she may need a colonoscopy. Patient agreeable. Time of 1ST Reevaluation: 08:30 Reevaluation 1ST: Unchanged Time of 2ND Reevaluation: 10:17 Reevaluation 2ND: Improved Patient Education/Counseling: Diagnosis, Treatment, Prognosis Family Education/Counseling: No Family Present SEPSIS Sepsis Screen Date sepsis recognized/suspect: Sep 29, 2025 Time Sepsis recognized/suspect: 0650 Recent Procedure: No On Antibiotic Therapy: No Respiratory Rate >20: No Heart Rate >90: No Temp<36 C (96.8 F) or >38.3 C: No SBP <90 or MAP <65 mmHG: No New Acute Mental Status Change: No Is the patient on CPAP, BIPAP,: No Physician Orders Electrocardigram (09/29/25 07:32) Vital Signs Date Time Temp Pulse Resp B/P (MAP) Pulse Ox O2 Delivery O2 Flow Rate FiO2 09/29/25 08:06 86 18 97 Room Air 09/29/25 08:06 98.4 86 18 148/83 (104) 97 98.4 09/29/25 06:55 82 09/29/25 06:47 97.0 89 18 155/111 97 97.0 Laboratory Tests Test 09/29/25 07:52 White Blood Count 6.7 10^3/uL (4.4-10.8) Medications Medications Dose Ordered Sig/Chetan Route Start Time Stop Time Status Last Admin Dose Admin Dimethicone 120 mg ONCE ONCE PO 09/29/25 07:45 09/29/25 07:46 DC 09/29/25 07:58 Departure 1 Departure Time of Disposition: 10:15 Impression: Primary Impression: Colitis Additional Impression: Transaminitis Disposition: HOME / SELF CARE / HOMELESS Condition: Fair Additional Instructions: Follow up with the primary care physician in 2-3 days. Return to the ER if symptoms worsen or persist. If you are symptoms do not improve in 1 week follow up with the primary care physician and you may need a GI referral for colonoscopy. e-Prescriptions Simethicone (Gas Relief Extra Strength) 125 Mg Chw 125 MG PO Q6HPRN PRN, #14 TAB.CHEW Prov: FAUSTINA VARGAS MD 09/29/25 Discharged With: Self Critical Care Note Critical Care Time?: No Stability Stability form required: No Heart Score Heart Score: Heart Score Response (Comments) Value History N/A 0 EKG N/A 0 Age N/A 0 Risk Factors N/A 0 Troponin N/A 0 Total 0 I personally scribed for FAUSTINA VARGAS MD ([email or web address]) on 09/29/25 at 07:30. Electronically submitted by Addie Auguste ([facility]). I personally scribed for FAUSTINA VARGAS MD ([email or web address]) on 09/29/25 at 07:37. Electronically submitted by Addie Auguste ([facility] I personally scribed for FAUSTINA VARGAS MD ([email or web address]) on 09/29/25 at 07:43. Electronically submitted by Addie Auguste ([facility]). FAUSTINA VARGAS MD Sep 29, 2025 07:30
[2025-09-29] MEDS: SIMETHICONE 80 MG CHEWABLE TABLET PO ONE (07:58)
[2025-09-29 08:04] LABS: Urine Protein, UAD Negative (Negative)
[2025-09-29 08:31] LABS: Hematocrit 38.8 % (36.0-46.0); Hemoglobin 13.0 g/dL (12.2-16.2); Mean Corpuscular Hemoglobin 31.3 pg (28.0-32.0); Mean Corpuscular Volume 93.2 fL (80.0-100.0); Nucleated Red Blood Cells % 0.0 %
[2025-09-29 08:45] LABS: Albumin 4.5 g/dL (3.2-4.8); Anion Gap 12 (5-15); BUN/Creatinine Ratio 10.6 (10.0-20.0); Bilirubin, Total 0.9 mg/dL (0.2-1.0); Calcium 8.9 mg/dL (8.7-10.4); Carbon Dioxide 24 mmol/L (20-31); Chloride 106 mmol/L (98-107); Potassium 4.3 mmol/L (3.5-5.1); Sodium 142 mmol/L (136-145)
[2025-09-29 08:49] LABS: Alanine Aminotransferase 65 U/L (7-40); Alkaline Phosphatase 141 U/L (46-116); Blood Urea Nitrogen 7 mg/dL (9-23); Glucose 116 mg/dL (74-106); Total Protein 8.2 g/dL (5.7-8.2)
[2025-09-29 10:19] VITALS: BP 145/97; PULSE 84; RESP 18; TEMP 98.5; O2SAT 100
[2025-09-29] MEDS ORDERED: [UNRECOGNIZED DRUG - CODE] PO (10:20)
--- NOTE | 2025-10-03 06:08 | ECG ---
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
== END 2025-09-29 10:28 | disposition home or self-care (01) ==
LOC: ER 06:46
DX: K52.9 Noninfective gastroenteritis and colitis, unspecified (principal); R74.01 Elevation of levels of liver transaminase levels
CPT/HCPCS: 36415; 80053; 81001; 81025; 83690; 85025; 93005